=== PATIENT | female | born 1945 | race Two or more races ===

== ENCOUNTER 2024-07-20 13:23 | Emergency (ER) | payer OTHER, MEDICAID ==
[~2024-07-20] VITALS: Ht 165.1 cm; Wt 51.0 kg
--- NOTE | 2024-07-20 13:25 | ED.PDOC ---
SOB-HPI HPI Comments HPI: Poor Historian. 79-year-old female presents to emergency department by ambulance for evaluation of exertional dyspnea. EMS states that the patient becomes hypoxic with minimal exertion. She is typically on supplemental oxygen at her place of residency/assisted living. Patient has not been able to go to physical therapy because every time she gets up she becomes hypoxic. Patient denies any pain anywhere in her body or any active chest pain or shortness of breath. Denies any urinary symptoms. However EMS states that today they noted that when she got up she had the episode of incontinence and the urine was white in color. past medical history: anemia in CKD, HTN, HLD, depression, DM 2, ESRD on dialysis, ID, CHF, neuropathy, metabolic encephalopathy past surgical history: unknown medications: norco, lasix, plavix, gabapentin, statin, humalog allergies: denies social history: denies tobacco use, denies Etoh use, denies drug use REVIEW OF SYSTEMS: CONSTITUTIONAL: Denies acute: fever, diaphoresis, chills, HEAD: Denies acute: headache, photophobia Eyes: Denies acute: Double vision, vision loss, eye pain, eye discharge. EARS: Denies acute: tinnitus, hearing loss, ear discharge, ear pain, THROAT: Denies acute: sore throat, swelling, difficulty swallowing , pain with swallowing, change in voice. NECK: Denies acute: neck pain, neck swelling, stiff neck. HEART: Denies acute : chest pain, palpitations, LUNGS: Denies acute: wheezing, cough, hemoptysis ABDOMEN: Denies acute: abdominal pain, Nausea, Vomiting, diarrhea, melena , hematemesis, hematochezia SKIN: Denies acute: rash, redness, lesions, itchiness. EXTREMITIES: Denies acute: calf pain, numbness, tingling, weakness, denies pain in extremity. Denies acute: Low back pain. Neuro: Denies acute: focal neurological deficit, motor or sensory focal neurological deficit, tremors, seizure like activity, confusion, dizziness, change in mental status, loss of bowel or bladder function, cauda equina like symptoms. : Denies acute: dysuria, hematuria, flank pain, increase in urinary frequency. PSYCH: Denies acute: hallucination, suicidal ideation, homicidal ideation. FEMALE: Denies acute: abnormal vaginal bleeding, foul odor, unusual discharge. PHYSICAL EXAM: General: no acute distress, awake and alert. Head: normocephalic, atraumatic. Neck: supple, trachea is midline, no swelling. Throat: Normal phonation. Eyes:, no erythema, no purulent discharge, no proptosis, no icterus. Heart: regular rate, regular rhythm, no significant murmur appreciated. Lungs: no apparent respiratory distress, Able to speak in full sentences. No wheezing, no rhonchi, no crackles. No stridors Clear to auscultation bilaterally. Abdomen: non tender to palpation, non distended, soft, no guarding, no rebound, + bowel sounds. Neuro: Awake, Alert, oriented to name, self, situation, follows commands GCS=15. Speech is normal. Skin: no petechia, no purpura, no cyanosis, non-pale, not jaundice. Lower extremities: --no - Pitting edema no deformity, no focal swelling, no calf TTP. Makes eye contact. moves all four extremities. Face: no apparent facial droop. ED COURSE: Time Seen by MD: 13:24 Reviewed notes: Nurses Notes, Allergies Information Source: Patient, Emergency Med Personnel Mode of Arrival: EMS Brought in by: EMS Was a procedure done? Was a procedure done?: No Differential Dx Differential Diagnosis: Other (DDx include ACS, unstable angina, anxiety, PE, pneumothroax, neoplasm, cardiac ischemia, COPD, asthma, CHF, pleural effusion, tobacco abuse, pneumonia, hypoxia, hypercapnia, anemia., infection/sepsis., pulmonary edema. Asthma, Cardiac tamponade, infection.) X-Ray, Labs, Meds, VS Vital Signs Date Time Temp Pulse Resp B/P (MAP) Pulse Ox O2 Delivery O2 Flow Rate FiO2 07/20/24 19:50 98.1 68 18 163/52 (89) 97 98.1 07/20/24 19:35 66 20 99 Nasal Cannula* 4 36 07/20/24 19:08 161/50 07/20/24 18:00 97.9 71 21 152/45 (80) 96 97.9 07/20/24 16:00 73 07/20/24 16:00 98.0 74 18 159/53 (88) 100 98.0 07/20/24 14:30 76 20 99 Nasal Cannula* 4 36 07/20/24 14:15 97.8 76 20 170/57 (94) 100 97.8 07/20/24 14:10 98.3 80 16 150/60 (90) 98 98.3 07/20/24 13:23 78 Lab Test 07/20/24 16:33 07/20/24 14:42 07/20/24 13:35 Range/Units Troponin I High Sensitivity 32 34 33 </=34 ng/L White Blood Count 6.2 4.4-10.8 10^3/uL Red Blood Count 2.22 L 4.0-5.20 10^6/uL Hemoglobin 7.5 L 12.2-16.2 g/dL Hematocrit 21.8 L 36.0-46.0 % Mean Corpuscular Volume 98.3 80.0-100.0 fL Mean Corpuscular Hemoglobin 33.9 H 28.0-32.0 pg Mean Corpuscular Hemoglobin Concent 34.5 32.0-36.0 g/dL Red Cell Distribution Width 15.7 H 11.8-14.3 % Platelet Count 185 140-450 10^3/uL Mean Platelet Volume 7.7 6.9-10.8 fL Neutrophils (%) (Auto) 74.3 37.0-80.0 % Lymphocytes (%) (Auto) 14.2 10.0-50.0 % Monocytes (%) (Auto) 10.6 0.0-12.0 % Eosinophils (%) (Auto) 0.4 0.0-7.0 % Basophils (%) (Auto) 0.5 0.0-2.0 % Neutrophils # (Auto) 4.6 1.6-8.6 10 ^3/uL Lymphocytes # (Auto) 0.9 0.4-5.4 10 ^3/uL Monocytes # (Auto) 0.7 0-1.3 10 ^3/uL Eosinophils # (Auto) 0 0-0.8 10 ^3/uL Basophils # (Auto) 0 0-0.2 10 ^3/uL Nucleated Red Blood Cells 0.1 % D-Dimer, Quantitative 1.59 H 0.0-0.49 mg/L FEU Sodium Level 132 L 136-145 mmol/L Potassium Level 3.3 L 3.5-5.1 mmol/L Chloride Level 94 L 98-107 mmol/L Carbon Dioxide Level 29 20-31 mmol/L Anion Gap 9 5-15 Blood Urea Nitrogen 28 H 9-23 mg/dL Creatinine 6.16 H 0.550-1.02 mg/dL Glomerular Filtration Rate Calc 6 >90 mL/min BUN/Creatinine Ratio 4.5 L 10.0-20.0 Serum Glucose 90 74-106 mg/dL Lactic Acid Level 1.1 0.4-2.0 mmol/L Calcium Level 7.2 L 8.7-10.4 mg/dL Total Bilirubin 0.3 0.2-1.0 mg/dL Aspartate Amino Transferase (AST) 12 L 13-40 U/L Alanine Aminotransferase (ALT) < 9 7-40 U/L Alkaline Phosphatase 57 46-116 U/L B-Type Natriuretic Peptide 1861.44 0-100 pg/mL Total Protein 5.9 5.7-8.2 g/dL Albumin 2.6 L 3.2-4.8 g/dL Current Medications Medications (Trade) Dose Ordered Sig/Del Route Start Time Stop Time Status Last Admin Furosemide (Lasix Injection) 60 mg STAT ONCE IV 07/20/24 16:45 07/20/24 17:39 DC 07/20/24 19:08 [place] [id number] Ph: [phone] DIAGNOSTIC IMAGING Diagnostic Imaging Report : [id number] Signed PATIENT: RAQUEL EL ACCT: [id number] UNIT: [id number] : 1945 LOC: ER ROOM / BED: / AGE / SEX: 79 / F ADM STATUS: REG ER SERVICE 1401 ORDERING PHYSICIAN: SUSAN CAMPA DO PROCEDURE(s): CXRP - CHEST PORTABLE REASON: sob ORDER NUMBER(s): [id number], ACCESSION NUMBER(s): [id number] CHEST RADIOGRAPH Indication: sob Technique: Single frontal view of the chest was obtained COMPARISON: None FINDINGS: Lines and Tubes: None Lungs: Clear Pleura: No effusion. No pneumothorax. Cardiomediastinal contours: Cardiomegaly Bones: Unremarkable IMPRESSION: Cardiomegaly ATED BY: AMANDO GRAF MD DICTATED DATE/TIME: 07/20/241437 SIGNED BY: AMANDO GRAF MD SIGNED DATE/TIME: 07/20/241437 CC: [place] [id number] Ph: [phone] DIAGNOSTIC IMAGING Diagnostic Imaging Report : [id number] Signed PATIENT: RAQUEL EL ACCT: [id number] UNIT: [id number] : 1945 LOC: OVERFLOW ROOM / BED: [facility]-ER / A AGE / SEX: 79 / F ADM STATUS: REG ER SERVICE 10 ORDERING PHYSICIAN: SUSAN CAMPA DO PROCEDURE(s): CTACH - CT ANGIO CHEST CONTRAST REASON: sob ORDER NUMBER(s): [id number], ACCESSION NUMBER(s): [id number] PROCEDURE: CT CT ANGIO CHEST CONTRAST 07/20/2024 04:58 PM INDICATION: sob COMPARISON: None TECHNIQUE: Coverage: Thorax IV contrast: Administered Phases: Arterial Multiplanar 3-D Maximum Intensity Projection images (MIP) reconstructions were created by the technologist in the coronal and sagittal planes as part of the CT angiography protocol. Adverse events: None Medication laboratory values were reviewed to verify the patient meets criteria for contrast administration. All CT scans at this medical facility are performed using dose modulation techniques as appropriate to a performed exam including the following: Automated exposure control was utilized; adjustment of the MA and/or KV according to patient size; and use of iterative reconstruction technique. Radiation dose: CTDIvol 8.88 mGy, DLP 236.23 mGy*cm. FINDINGS: Cardiovascular: No evidence of acute or chronic pulmonary emboli identified. Aorta is normal in caliber with diffuse atherosclerotic calcifications. The heart is moderately enlarged. Coronary artery calcification/ stenting noted. Lungs: Small left pleural effusion. Trace right pleural effusion. Mild dependent opacities in the bilateral lower lobes. An azygous fissure noted. A subcentimeter air cyst is seen in the right upper lobe adjacent to major fissure.. No pneumothorax. The airways are patent. Thyroid: Unremarkable. Esophagus: Unremarkable. Lymphatics: No hilar or mediastinal lymphadenopathy. Bones/soft tissues: No acute abnormality. Upper abdomen: Cholelithiasis gallbladder wall thickening. Circumferential mural thickening of the visualized large bowel wall. Slightly nodular liver contour. Mild thickening of the bilateral adrenal glands may represent hyperplasia or congestion. Other: None. IMPRESSION: 1. No evidence of acute pulmonary emboli. 2. Small bilateral pleural effusions with mild adjacent pulmonary opacities likely compressive atelectasis. No lobar consolidation. 3. Cardiomegaly and pulmonary venous congestion. No pulmonary edema noted. 4. Several findings in the upper abdomen including cholelithiasis and gallbladder wall thickening/ edema concerning for cholecystitis. Recommend further evaluation right upper quadrant ultrasound. In addition, there is circumferential mural thickening of visualized large bowel concerning for colitis. Moreover, there is a slight nodularity of the liver contour which may indicate underlying cirrhosis. Recommend clinical correlation. Possible bilateral adrenal glands congestion. ATED BY: GILDA BROWN MD DICTATED DATE/TIME: 07/20/241952 SIGNED BY: GILDA BROWN MD SIGNED DATE/TIME: 07/20/241952 CC: Time of 1ST Reevaluation: 19:55 (The case was discussed with the [facility] admitting team (HPI, physical exam, labs and diagnostic tests that were available at the time of disposition, ED course, treatment plan) on the phone. They transfer the patient to their service by ALS for further evaluation and treatment. Dr. Vazquez Authorization number is--[id number]) Reevaluation 1ST: Improved Time of 2ND Reevaluation: 23:11 Reevaluation 2ND: Improved Patient Education/Counseling: Diagnosis, Treatment Family Education/Counseling: No Family Present Comments CTA angiogram of the chest was obtained. Patient has no abdominal complaints or pain or nausea or vomiting. I updated the [facility] physician with the CT scan report. Patient presented with the above HPI.------workup was initiated. patient was found with the above mentioned diagnosis. the following medications were ordered: please refer to order lists of meds and tests obtained by myself Dr. Campa. Patient ED course and VS have been stabilized. Patient has been reassessed in the ED and remained in a stable condition. Pertinent incidental findings were discussed with the patient and/or family. Patient/family voices understanding and is agreeable with plan. Patient has been observed in the ED adequate length of time to insure improvement/stability. Escalation of care considered: Consideration of escalation to observation or admission Patient we will be transferred to [facility] per insurance requirement for further evaluation and treatment of her presentation. Patient will need dialysis soon which was communicated to the [facility] facility since she received contrast study here in the ED. All the reports of any imaging studies that were ordered by myself were reviewed by myself. Departure 1 Departure Time of Disposition: 13:57 Impression: Primary Impression: Hypoxemia Additional Impressions: Abnormal EKG CHF exacerbation Anemia Acute renal failure Hypoalbuminemia Pleural effusion Disposition: 02 SHORT TERM HOSPITAL Admit to: Tele Condition: Guarded Discharged With: Self Critical Care Note Critical Care Time?: Yes (55 min-critical care time only) I personally scribed for SUSAN CAMPA DO ([email or web address]) on 07/20/24 at 13:25. Electronically submitted by John Daley ([email or web address]). I personally scribed for SUSAN CAMPA DO ([email or web address]) on 07/20/24 at 13:44. Electronically submitted by John Daley ([email or web address]). I personally scribed for SUSAN CAMPA DO ([email or web address]) on 07/20/24 at 16:44. Electronically submitted by John Daley ([email or web address]). I personally scribed for SUSAN CAMPA DO ([email or web address]) on 07/20/24 at 17:40. Electronically submitted by John Daley ([email or web address]). I personally scribed for SUSAN CAMPA DO ([email or web address]) on 07/20/24 at 20:04. Electro nically submitted by John Daley ([email or web address]). SUSAN CAMPA DO Jul 20, 2024 13:25
[2024-07-20 13:53] LABS: Basophils # (auto) 0 10 ^3/uL (0-0.2); Basophils % (auto) 0.5 % (0.0-2.0); Eosinophils # (auto) 0 10 ^3/uL (0-0.8); Hemoglobin 7.5 g/dL (12.2-16.2); Lymphocytes # (auto) 0.9 10 ^3/uL (0.4-5.4); Monocytes # (auto) 0.7 10 ^3/uL (0-1.3); White Blood Cell 6.2 10^3/uL (4.4-10.8)
[2024-07-20 13:55] LABS: Eosinophils % (auto) 0.4 % (0.0-7.0); Hematocrit 21.8 % (36.0-46.0); Lymphocytes % (auto) 14.2 % (10.0-50.0); Mean Corpuscular Hemoglobin 33.9 pg (28.0-32.0); Mean Corpuscular Hgb Conc. 34.5 g/dL (32.0-36.0); Mean Corpuscular Volume 98.3 fL (80.0-100.0); Monocytes % (auto) 10.6 % (0.0-12.0); Neutrophils # (auto) 4.6 10 ^3/uL (1.6-8.6); Neutrophils % (auto) 74.3 % (37.0-80.0); Nucleated Red Blood Cells % 0.1 %; Platelet Count (auto) 185 10^3/uL (140-450); Red Blood Cells 2.22 10^6/uL (4.0-5.20); Red Cell Distribution Width 15.7 % (11.8-14.3)
[2024-07-20 14:19] LABS: Alanine Aminotransferase < 9 U/L (7-40); Albumin 2.6 g/dL (3.2-4.8); Alkaline Phosphatase 57 U/L (46-116); Anion Gap 9 (5-15); Aspartate Aminotransferase 12 U/L (13-40); BUN/Creatinine Ratio 4.5 (10.0-20.0); Blood Urea Nitrogen 28 mg/dL (9-23); Calcium 7.2 mg/dL (8.7-10.4); Carbon Dioxide 29 mmol/L (20-31); Chloride 94 mmol/L (98-107); Glucose 90 mg/dL (74-106); Potassium 3.3 mmol/L (3.5-5.1); Sodium 132 mmol/L (136-145); Total Protein 5.9 g/dL (5.7-8.2)
[2024-07-20 14:20] LABS: Bilirubin, Total 0.3 mg/dL (0.2-1.0)
[2024-07-20 14:30] VITALS: PULSE 76; RESP 20; O2SAT 99
--- NOTE | 2024-07-20 14:41 | DVH ---
CHEST RADIOGRAPH Indication: sob Technique: Single frontal view of the chest was obtained COMPARISON: None FINDINGS: Lines and Tubes: None Lungs: Clear Pleura: No effusion. No pneumothorax. Cardiomediastinal contours: Cardiomegaly Bones: Unremarkable IMPRESSION: Cardiomegaly
[2024-07-20] MEDS: IOHEXOL 350 MG/ML 100ML IJ ONE (16:58)
[2024-07-20] MEDS: FUROSEMIDE 100 MG/10ML VIAL IV ONE (19:08)
[2024-07-20 19:35] VITALS: PULSE 66; RESP 20; O2SAT 99
--- NOTE | 2024-07-20 19:56 | DVH ---
PROCEDURE: CT CT ANGIO CHEST CONTRAST 07/20/2024 04:58 PM INDICATION: sob COMPARISON: None TECHNIQUE: Coverage: Thorax IV contrast: Administered Phases: Arterial Multiplanar 3-D Maximum Intensity Projection images (MIP) reconstructions were created by the technrolando patel in the coronal and sagittal planes as part of the CT angiography protocol. Adverse events: None Medication laboratory values were reviewed to verify the patient meets criteria for contrast administ ration. All CT scans at this medical facility are performed using dose modulation techniques as appropriate t o a performed exam including the following: Automated exposure control was utilized; adjustment of th e MA and/or KV according to patient size; and use of iterative reconstruction technique. Radiation dose: CTDIvol 8.88 mGy, DLP 236.23 mGy*cm. FINDINGS: Cardiovascular: No evidence of acute or chronic pulmonary emboli identified. Aorta is normal in calib er with diffuse atherosclerotic calcifications. The heart is moderately enlarged. Coronary artery ca lcification/ stenting noted. Lungs: Small left pleural effusion. Trace right pleural effusion. Mild dependent opacities in the b ilateral lower lobes. An azygous fissure noted. A subcentimeter air cyst is seen in the right upper lobe adjacent to major fissure.. No pneumothorax. The airways are patent. Thyroid: Unremarkable. Esophagus: Unremarkable. Lymphatics: No hilar or mediastinal lymphadenopathy. Bones/soft tissues: No acute abnormality. Upper abdomen: Cholelithiasis gallbladder wall thickening. Circumferential mural thickening of the vi sualized large bowel wall. Slightly nodular liver contour. Mild thickening of the bilateral adrenal g lands may represent hyperplasia or congestion. Other: None. IMPRESSION: 1. No evidence of acute pulmonary emboli. 2. Small bilateral pleural effusions with mild adjacent pulmonary opacities likely compressive atelec tasis. No lobar consolidation. 3. Cardiomegaly and pulmonary venous congestion. No pulmonary edema noted. 4. Several findings in the upper abdomen including cholelithiasis and gallbladder wall thickening/ ed arley concerning for cholecystitis. Recommend further evaluation right upper quadrant ultrasound. In ad dition, there is circumferential mural thickening of visualized large bowel concerning for colitis. Moreover, there is a slight nodularity of the liver contour which may indicate underlying cirrhosis. Recommend clinical correlation. Possible bilateral adrenal glands congestion.
[2024-07-21 00:49] VITALS: BP 170/55; PULSE 79; RESP 20; TEMP 97.7; O2SAT 100
--- NOTE | 2024-07-25 07:08 | ECG ---
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
== END 2024-07-21 01:09 | disposition short-term general hospital (02) ==
LOC: EDBD 13:23 → ER 13:23 → OVERFLOW 15:58 → ER 15:58
DX: I13.2 Hypertensive heart and chronic kidney disease with heart failure and with stage 5 chronic kidney disease, or end stage renal disease (principal); I50.9 Heart failure, unspecified; N17.9 Acute kidney failure, unspecified; R09.02 Hypoxemia
CPT/HCPCS: 36415; 71045; 71275; 80053; 83605; 83880; 84484; 85025; 85379; 86850; 86900; 86901; 96374; 99291; J1940; Q9967

== ENCOUNTER 2024-08-12 09:44 | Emergency (ER) | payer MEDICAID, OTHER ==
[~2024-08-12] VITALS: Ht 162.6 cm; Wt 63.7 kg
--- NOTE | 2024-08-12 10:18 | ED.PDOC ---
History of Present Illness HPI Comments 79 y/o F, BIBA, presents to the ED for CC of generalized weakness. EMS reports, patient is coming from [facility] where she missed dialysis today (08/12/24) and was instructed by PCP () to follow up with the Ed for a further evaluation. In route to ED all VSS and placed on supplemental oxygen for comfort. No other associated symptoms, modifiers, recent injuries or sick contacts present at this time. 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 Family History Family History: Unknown Social History Smoker: Non-Smoker Alcohol: Denies ETOH Use Drugs: Denies Drug Use Lives In: Jail Constitutional: denies: chills, diaphoresis, fatigue, fever, malaise, sweats, weakness, others EENTM: denies: blurred vision, double vision, ear bleeding, ear discharge, ear drainage, ear pain, ear ringing, eye pain, eye redness, hearing loss, mouth pain, mouth swelling, nasal discharge, nose bleeding, nose congestion, nose pain, photophobia, tearing, throat pain, throat swelling, voice changes, others Respiratory: denies: cough, hemoptysis, orthopnea, SOB at rest, shortness of breath, SOB with excertion, stridor, wheezing, others Cardiovascular: denies: chest pain, dizzy spells, diaphoresis, Dyspnea on exertion, edema, irregular heart beat, left arm pain, lightheadedness, palpitations, PND, syncope, others Gastrointestinal: denies: abdomen distended, abdominal pain, blood streaked bowels, constipated, diarrhea, dysphagia, difficulty swallowing, hematemesis, melena, nausea, poor appetite, poor fluid intake, rectal bleeding, rectal pain, vomiting, others Genitourinary: denies: abnormal vagina bleeding, burning, dyspareunia, dysuria, flank pain, frequency, hematuria, incontinence, pain, , vagina discharge, urgency, others Neurological: denies: dizziness, fainting, headache, left sided numbness, left sided weakness, numbness, paresthesia, pre-existing deficit, right sided numbness, right sided weakness, seizure, speech problems, tingling, tremors, weakness, others Musculoskeletal: denies: back pain, gout, joint pain, joint swelling, muscle pain, muscle stiffness, neck pain, others Integumetry: denies: bruises, change in color, change in hair/nails, dryness, laceration, lesions, lumps, rash, wounds, others Allergic/Immunocompromised: denies: Difficulty Healing, Frequent Infections, Hives, Itching, others Hematologic/Lymphatic: denies: anemia, blood clots, easy bleeding, easy bruising, swollen glands, others Endocrine: denies: excessive hunger, excessive sweating, excessive thirst, excessive urination, flushing, intolerance to cold, intolerance to heat, unexplained weight gain, unexplained weight loss, others Psychiatric: denies: anxiety, bipolar disorder, depression, hopeless, panic disorder, schizophrenia, sleepless, suicidal, others All Other Systems: Reviewed and Negative Physical Exam General Appearance: Moderate Distress HEENT: Normal ENT Inspection, Pharynx Normal, TMs Normal Neck: Full Range of Motion, Non-Tender, Normal, Normal Inspection Respiratory: Chest Non-Tender, Lungs Clear, No Accessory Muscle Use, No Respiratory Distress, Normal Breath Sounds Cardiovascular: No Edema, No JVD, No Murmur, No Gallop, Normal Peripheral Pulses, Regular Rate/Rhythm Breast Exam: Deferred Gastrointestinal: No Organomegaly, Non Tender, No Pulsatile Mass, Normal Bowel Sounds, Soft Genitalia: Deferred Pelvic: Deferred Rectal: Deferred Extremities: No calf tenderness, No pedal edema Musculoskeletal : Apperance: Normal Neurologic: Alert Cerebellar Function: NOT DONE Reflexes: NOT DONE Skin: Dry, Normal Color, Warm Peripheral Pulses: 3+ Radial (R), 3+ Radial (L) Lymphatic: No Adenopathy Was a procedure done? Was a procedure done?: No EKG EKG : Pulse Rate (adult): 85 [place]: Normal Cardiac Rhythm: NSR Block: None Hypertrophy: None ST: Normal Differential Dx Considerations may include: fluid overload, hyperkalemia, electrolyte imbalance X-Ray, Labs, Meds, VS Vital Signs Date Time Temp Pulse Resp B/P (MAP) Pulse Ox O2 Delivery O2 Flow Rate FiO2 08/12/24 10:18 85 08/12/24 09:57 98.1 80 16 144/54 (84) 94 98.1 08/12/24 09:47 85 Lab Test 08/12/24 10:34 Range/Units White Blood Count 11.4 H 4.4-10.8 10^3/uL Red Blood Count 2.44 L 4.0-5.20 10^6/uL Hemoglobin 8.2 L 12.2-16.2 g/dL Hematocrit 25.7 L 36.0-46.0 % Mean Corpuscular Volume 105.6 H 80.0-100.0 fL Mean Corpuscular Hemoglobin 33.8 H 28.0-32.0 pg Mean Corpuscular Hemoglobin Concent 32.0 32.0-36.0 g/dL Red Cell Distribution Width 21.3 H 11.8-14.3 % Platelet Count 147 140-450 10^3/uL Mean Platelet Volume 8.1 6.9-10.8 fL Neutrophils (%) (Auto) 78.8 37.0-80.0 % Lymphocytes (%) (Auto) 13.3 10.0-50.0 % Monocytes (%) (Auto) 5.8 0.0-12.0 % Eosinophils (%) (Auto) 0.8 0.0-7.0 % Basophils (%) (Auto) 1.3 0.0-2.0 % Neutrophils # (Auto) 9.0 H 1.6-8.6 10 ^3/uL Lymphocytes # (Auto) 1.5 0.4-5.4 10 ^3/uL Monocytes # (Auto) 0.7 0-1.3 10 ^3/uL Eosinophils # (Auto) 0.1 0-0.8 10 ^3/uL Basophils # (Auto) 0.1 0-0.2 10 ^3/uL Nucleated Red Blood Cells 0.0 % Sodium Level 135 L 136-145 mmol/L Potassium Level 4.5 3.5-5.1 mmol/L Chloride Level 102 98-107 mmol/L Carbon Dioxide Level 23 20-31 mmol/L Anion Gap 10 5-15 Blood Urea Nitrogen 28 H 9-23 mg/dL Creatinine 7.40 H 0.550-1.02 mg/dL Glomerular Filtration Rate Calc 5 >90 mL/min BUN/Creatinine Ratio 3.8 L 10.0-20.0 Serum Glucose 107 H 74-106 mg/dL Calcium Level 8.4 L 8.7-10.4 mg/dL Patient alert. Difficult to hear. Vitals stable. No sign of any injury. She does get dialyzed. She is supposed to get dialyzed today but could not make it. Nephrology consultation. Reviewed her history. Explained to the patient. Continue monitoring. [place] approved patient to be treated at this hospital [phone]. Time of 1ST Reevaluation: 10:40 Reevaluation 1ST: Unchanged Patient Education/Counseling: Diagnosis, Treatment Family Education/Counseling: No Family Present Departure 1 Departure Time of Disposition: 10:30 Impression: Primary Impression: Hypokalemia Additional Impression: Chronic kidney disease on chronic dialysis Disposition: ADMITTED INPATIENT Admit to: Med Surg Condition: Guarded Critical Care Note Critical Care Time?: No Stability Stability form required: No Heart Score Heart Score: Heart Score Response (Comments) Value History N/A 0 EKG N/A 0 Age N/A 0 Risk Factors N/A 0 Troponin N/A 0 Total 0 I personally scribed for BUD TOWNSEND MD ([email or web address]) on 08/12/24 at 10:18. Electronically submitted by Isidra Hollingsworth ([email or web address]). BUD TOWNSEND MD Aug 12, 2024 10:18
[2024-08-12 10:30] VITALS: PULSE 89; RESP 14; O2SAT 98
[2024-08-12 10:54] LABS: Basophils # (auto) 0.1 10 ^3/uL (0-0.2); Eosinophils # (auto) 0.1 10 ^3/uL (0-0.8); Hemoglobin 8.2 g/dL (12.2-16.2); Lymphocytes # (auto) 1.5 10 ^3/uL (0.4-5.4); Red Blood Cells 2.44 10^6/uL (4.0-5.20)
[2024-08-12 10:55] LABS: Basophils % (auto) 1.3 % (0.0-2.0); Eosinophils % (auto) 0.8 % (0.0-7.0); Hematocrit 25.7 % (36.0-46.0); Lymphocytes % (auto) 13.3 % (10.0-50.0); Mean Corpuscular Hemoglobin 33.8 pg (28.0-32.0); Mean Corpuscular Volume 105.6 fL (80.0-100.0); Monocytes # (auto) 0.7 10 ^3/uL (0-1.3); Monocytes % (auto) 5.8 % (0.0-12.0); Neutrophils % (auto) 78.8 % (37.0-80.0); Platelet Count (auto) 147 10^3/uL (140-450); White Blood Cell 11.4 10^3/uL (4.4-10.8)
[2024-08-12 10:59] LABS: Chloride 102 mmol/L (98-107); Potassium 4.5 mmol/L (3.5-5.1); Red Cell Distribution Width 21.3 % (11.8-14.3)
[2024-08-12 11:00] LABS: Anion Gap 10 (5-15); Carbon Dioxide 23 mmol/L (20-31)
[2024-08-12 11:05] LABS: Calcium 8.4 mg/dL (8.7-10.4); Sodium 135 mmol/L (136-145)
[2024-08-12 11:06] LABS: BUN/Creatinine Ratio 3.8 (10.0-20.0); Blood Urea Nitrogen 28 mg/dL (9-23); Glucose 107 mg/dL (74-106)
[2024-08-12 12:38] VITALS: BP 132/48; PULSE 88; RESP 22; TEMP 99; O2SAT 100
--- NOTE | 2024-08-13 10:45 | ECG ---
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
== END 2024-08-12 12:48 | disposition short-term general hospital (02) ==
LOC: ER 09:44 → EDBD 09:44 → ER 12:48
DX: E87.6 Hypokalemia (principal); N18.6 End stage renal disease; R53.1 Weakness; Z99.2 Dependence on renal dialysis
CPT/HCPCS: 36415; 80048; 85025; 93005

== ENCOUNTER 2024-09-07 16:48 | Emergency (ER) | payer OTHER ==
[~2024-09-07] VITALS: Ht 162.6 cm; Wt 63.8 kg
--- NOTE | 2024-09-07 17:02 | ECG ---
[facility] Test Date: 2024-09-07 Test Time: 16:56:57 Pat Name: RAQUEL EL Department: ED Room: Gender: F Aco Coordinator: Charlie : 1945 Requested By: ERA KIDD Order Number: [id number] Reading MD: Rios Wallace Measurements Intervals Reese Rate: 92 P: 69 AR: 137 QRS: -50 QRSD: 115 T: 150 QT: 414 QTc: 513 Interpretive Statements Sinus rhythm Probable left atrial enlargement LVH with IVCD, LAD and secondary repol abnrm Prolonged QT interval Electronically Signed On 09-09-2024 21:00:20 PDT by Rios Wallace Please click the below link to view image of tracing.
[2024-09-07 17:45] LABS: Basophils # (auto) 0 10 ^3/uL (0-0.2); Basophils % (auto) 0.5 % (0.0-2.0); Eosinophils # (auto) 0 10 ^3/uL (0-0.8); Hemoglobin 11.6 g/dL (12.2-16.2); Monocytes # (auto) 0.5 10 ^3/uL (0-1.3); Neutrophils # (auto) 4.2 10 ^3/uL (1.6-8.6); Red Cell Distribution Width 19.2 % (11.8-14.3); White Blood Cell 7.1 10^3/uL (4.4-10.8)
[2024-09-07 17:48] LABS: Eosinophils % (auto) 0.6 % (0.0-7.0); Hematocrit 36.1 % (36.0-46.0); Lymphocytes # (auto) 2.3 10 ^3/uL (0.4-5.4); Lymphocytes % (auto) 32.9 % (10.0-50.0); Mean Corpuscular Hemoglobin 32.9 pg (28.0-32.0); Mean Corpuscular Volume 102.8 fL (80.0-100.0); Monocytes % (auto) 7.4 % (0.0-12.0); Neutrophils % (auto) 58.6 % (37.0-80.0); Nucleated Red Blood Cells % 0.3 %; Platelet Count (auto) 110 10^3/uL (140-450); Red Blood Cells 3.51 10^6/uL (4.0-5.20)
[2024-09-07 17:50] VITALS: PULSE 83; RESP 18; O2SAT 98
--- NOTE | 2024-09-07 17:52 | ED.PDOC ---
History of Present Illness HPI Comments 79y F who presents to the ED via EMS for chief complaint of abnormal labs. Per EMS, pt is resident at at [facility] and pt had labs done earlier this AM. Pt had labs showing low K and EMS was called to take pt to the ED for further evaluation. Pt now in the ED, denies chest pain, shortness of breath, headache, dizziness, nausea, vomiting, diarrhea, weakness or any associated symptoms. Pt has history of ESRD on dialysis Wednesday and Wednesday and did receive dialysis Wednesday (2 days ago). Pt otherwise denies any other symptoms at this time. 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 Family History Family History: Unknown Social History Smoker: Non-Smoker Alcohol: Denies ETOH Use Drugs: Denies Drug Use Lives In: [place] Constitutional: denies: chills, diaphoresis, fatigue, fever, malaise, sweats, weakness, others EENTM: denies: blurred vision, double vision, ear bleeding, ear discharge, ear drainage, ear pain, ear ringing, eye pain, eye redness, hearing loss, mouth pain, mouth swelling, nasal discharge, nose bleeding, nose congestion, nose pain, photophobia, tearing, throat pain, throat swelling, voice changes, others Respiratory: denies: cough, hemoptysis, orthopnea, SOB at rest, shortness of breath, SOB with excertion, stridor, wheezing, others Cardiovascular: denies: chest pain, dizzy spells, diaphoresis, Dyspnea on exertion, edema, irregular heart beat, left arm pain, lightheadedness, palpitations, PND, syncope, others Gastrointestinal: denies: abdomen distended, abdominal pain, blood streaked bowels, constipated, diarrhea, dysphagia, difficulty swallowing, hematemesis, melena, nausea, poor appetite, poor fluid intake, rectal bleeding, rectal pain, vomiting, others Genitourinary: denies: abnormal vagina bleeding, burning, dyspareunia, dysuria, flank pain, frequency, hematuria, incontinence, pain, , vagina discharge, urgency, others Neurological: denies: dizziness, fainting, headache, left sided numbness, left sided weakness, numbness, paresthesia, pre-existing deficit, right sided numbness, right sided weakness, seizure, speech problems, tingling, tremors, weakness, others Musculoskeletal: denies: back pain, gout, joint pain, joint swelling, muscle pain, muscle stiffness, neck pain, others Integumetry: denies: bruises, change in color, change in hair/nails, dryness, laceration, lesions, lumps, rash, wounds, others Allergic/Immunocompromised: denies: Difficulty Healing, Frequent Infections, Hives, Itching, others Hematologic/Lymphatic: denies: anemia, blood clots, easy bleeding, easy bruising, swollen glands, others Endocrine: denies: excessive hunger, excessive sweating, excessive thirst, excessive urination, flushing, intolerance to cold, intolerance to heat, unexplained weight gain, unexplained weight loss, others Psychiatric: denies: anxiety, bipolar disorder, depression, hopeless, panic disorder, schizophrenia, sleepless, suicidal, others All Other Systems: Reviewed and Negative Physical Exam General Appearance: No Apparent Distress HEENT: Other (Vitals and face symmetric. Moist mucous membranes.) Neck: Full Range of Motion, Normal Inspection Respiratory: Lungs Clear, No Accessory Muscle Use, No Respiratory Distress, Normal Breath Sounds Cardiovascular: No Edema, No JVD, Regular Rate/Rhythm Breast Exam: Deferred Gastrointestinal: Non Tender, Soft Genitalia: Deferred Pelvic: Deferred Rectal: Deferred Extremities: Normal inspection, Normal range of motion, Non-tender, No pedal edema Neurologic: Alert (Oriented x4), Normal Affect, Normal Mood, Other (Moves all extremities.) Cerebellar Function: NOT DONE Reflexes: NOT DONE Skin: Dry, Normal Color, Warm Lymphatic: NOT DONE Was a procedure done? Was a procedure done?: No EKG EKG : Comments Sinus rhythm, rate 92, normal TX and QRS intervals, QTC 513, left axis deviation, LVH with secondary repolarization abnormality, lateral T-wave i nversion. Differential Dx Considerations may include: Electrolyte imbalance, lab error, arrhythmia, among others X-Ray, Labs, Meds, VS Vital Signs Date Time Temp Pulse Resp B/P (MAP) Pulse Ox O2 Delivery O2 Flow Rate FiO2 5/15/25 19:30 Room Air* 0 21 09/07/24 19:30 98.0 79 27 137/42 (73) 95 98.0 09/07/24 17:50 83 18 98 Room Air* 0 21 09/07/24 17:50 83 25 135/44 (74) 09/07/24 16:56 92 09/07/24 16:50 97.4 95 18 130/60 (83) 94 97.4 Lab Test 09/07/24 18:16 09/07/24 17:11 Range/Units Troponin I High Sensitivity 30 28 </=34 ng/L White Blood Count 7.1 4.4-10.8 10^3/uL Red Blood Count 3.51 L 4.0-5.20 10^6/uL Hemoglobin 11.6 L 12.2-16.2 g/dL Hematocrit 36.1 36.0-46.0 % Mean Corpuscular Volume 102.8 H 80.0-100.0 fL Mean Corpuscular Hemoglobin 32.9 H 28.0-32.0 pg Mean Corpuscular Hemoglobin Concent 32.0 32.0-36.0 g/dL Red Cell Distribution Width 19.2 H 11.8-14.3 % Platelet Count 110 L 140-450 10^3/uL Mean Platelet Volume 8.6 6.9-10.8 fL Neutrophils (%) (Auto) 58.6 37.0-80.0 % Lymphocytes (%) (Auto) 32.9 10.0-50.0 % Monocytes (%) (Auto) 7.4 0.0-12.0 % Eosinophils (%) (Auto) 0.6 0.0-7.0 % Basophils (%) (Auto) 0.5 0.0-2.0 % Neutrophils # (Auto) 4.2 1.6-8.6 10 ^3/uL Lymphocytes # (Auto) 2.3 0.4-5.4 10 ^3/uL Monocytes # (Auto) 0.5 0-1.3 10 ^3/uL Eosinophils # (Auto) 0 0-0.8 10 ^3/uL Basophils # (Auto) 0 0-0.2 10 ^3/uL Nucleated Red Blood Cells 0.3 % Sodium Level 140 136-145 mmol/L Potassium Level 3.1 L 3.5-5.1 mmol/L Chloride Level 100 98-107 mmol/L Carbon Dioxide Level 27 20-31 mmol/L Anion Gap 13 5-15 Blood Urea Nitrogen 14 9-23 mg/dL Creatinine 6.35 H 0.550-1.02 mg/dL Glomerular Filtration Rate Calc 6 >90 mL/min BUN/Creatinine Ratio 2.2 L 10.0-20.0 Serum Glucose 87 74-106 mg/dL Calcium Level 8.1 L 8.7-10.4 mg/dL B-Type Natriuretic Peptide 427.86 0-100 pg/mL Current Medications Medications (Trade) Dose Ordered Sig/Del Route Start Time Stop Time Status Last Admin Potassium Bicarbonate (Klor-Con/Ef) 50 meq ONCE ONCE PO 09/07/24 18:30 09/07/24 18:31 DC 09/07/24 18:37 X-Ray, Labs, Meds, VS Comment 79-year-old female with a history of hypertension, diabetes, end-stage renal disease on dialysis and anemia brought in by EMS from [facility] for evaluation of hypokalemia based on labs drawn this morning. Patient is asymptomatic. Vitals unremarkable Exam unremarkable Rhythm strip independently interpreted by me: Sinus rhythm, rate 92, no ectopy. CBC remarkable for platelets 110, metabolic panel remarkable for potassium 3.1, creatinine 6.35, calcium 8.1, BNP 427.86, troponin negative Patient treated with the following in the ED: Effervescent potassium 50 mEq p.o. On re-evaluation, patient was still asymptomatic with stable vitals. Patient appears stable for discharge with close outpatient follow-up with her primary physician. Recommend repeat labs tomorrow morning. Case discussed with at [facility], who will arrange for the patient to be transferred back to her facility. Authorization [id number] Time of 1ST Reevaluation: 18:20 Reevaluation 1ST: Unchanged Patient Education/Counseling: Diagnosis, Treatment Family Education/Counseling: No Family Present Departure 1 Departure Time of Disposition: 18:23 Impression: Primary Impression: Hypokalemia Disposition: 01 HOME / SELF CARE / HOMELESS Condition: Stable Additional Instructions: Your potassium today in the ER was 3.1. We have given you oral potassium to replace it. We recommend having repeat blood tests tomorrow morning to check your potassium. Return to ER for persistent or worsening symptoms. Discharged With: Sales Development Coordinator Critical Care Note Critical Care Time?: No Stability Stability form required: No Heart Score Heart Score: Heart Score Response (Comments) Value History N/A 0 EKG N/A 0 Age N/A 0 Risk Factors N/A 0 Troponin N/A 0 Total 0 I personally scribed for ERA ANDREW MD ([email or web address]) on 09/07/24 at 17:52. Electronically submitted by John Daley ([facility]). ERA ANDREW MD September 07, 2024 17:52
[2024-09-07 17:54] LABS: Anion Gap 13 (5-15); Carbon Dioxide 27 mmol/L (20-31); Chloride 100 mmol/L (98-107); Sodium 140 mmol/L (136-145)
[2024-09-07 18:00] LABS: BUN/Creatinine Ratio 2.2 (10.0-20.0); Blood Urea Nitrogen 14 mg/dL (9-23); Calcium 8.1 mg/dL (8.7-10.4); Glucose 87 mg/dL (74-106); Potassium 3.1 mmol/L (3.5-5.1)
[2024-09-07] MEDS: POTASSIUM EFFERVESENT TAB 25 MEQ PO ONE (18:37)
[2024-09-07 19:30] VITALS: BP 137/42; PULSE 79; RESP 27; TEMP 98; O2SAT 95
== END 2024-09-07 20:25 | disposition home or self-care (01) ==
LOC: EDBD 16:48 → ER 16:50
DX: E87.6 Hypokalemia (principal); I12.0 Hypertensive chronic kidney disease with stage 5 chronic kidney disease or end stage renal disease; E11.22 Type 2 diabetes mellitus with diabetic chronic kidney disease; N18.6 End stage renal disease; R06.02 Shortness of breath; Z88.6 Allergy status to analgesic agent; Z99.2 Dependence on renal dialysis
CPT/HCPCS: 36415; 80048; 83880; 84484; 85025; 93005